=== PATIENT | female | born 1985 ===

== ENCOUNTER 2019-05-26 10:34 | Inpatient (IN) ==
[2019-05-26] MEDS ORDERED: Naloxone 0.4 MG/ML INJ IVP PRN (11:40)
[2019-05-26] MEDS ORDERED: Famotidine 20 MG/2 ML VIAL IVP PRN (11:40)
[2019-05-26] MEDS ORDERED: Ondansetron 4 MG/2 ML VIAL IVP PRN (11:40)
[2019-05-26] MEDS ORDERED: Metoclopramide 10 MG/2 ML VIAL IVP PRN (11:40)
[2019-05-26] MEDS ORDERED: *HR* Nalbuphine 10 MG/ML AMPUL IVP PRN (11:40)
[2019-05-26] MEDS ORDERED: Lidocaine 1% 20 ML MDV INFILT PRN (11:40)
[2019-05-26] MEDS ORDERED: Ringers Solution, Lactated 1,000 ML IVC SCH (11:45)
[2019-05-26 12:34] LABS: Basophils % 0.2 %; Eosinophils % 0.2 %; Hematocrit 40.8 % (35.3-44.9); Hemoglobin 13.6 g/dL (11.5-15.4); Immature Granulocytes % 0.2 % (0-4); Lymphocytes # 1.6 K/mcL (0.6-4.6); Lymphocytes % 17.9 %; Mean Corpuscular HGB Conc 33.3 g/dL (31.6-35.5); Mean Corpuscular Volume 89.9 fL (83.0-100.0); Mean Platelet Volume 11.4 fL (9.4-12.4); Monocytes # 0.5 K/mcL (0.0-1.3); Monocytes % 5.9 %; Neutrophils # 6.5 K/mcL (1.6-8.9); Platelet Count 202 K/mcL (140-400); Red Blood Count 4.54 M/mcL (3.82-4.97); Red Cell Distribution Width 12.7 % (11.5-14.5); Segmented Neutrophils % 75.6 %; White Blood Count 8.7 K/mcL (4.3-11.1)
[2019-05-26 12:44] LABS: Amphetamine Screen,Urine Negative ng/mL (Cutoff=1000); Barbiturate Screen,Urine Negative ng/mL (Cutoff=200); Benzodiazepines Screen,Urine Negative ng/mL (Cutoff=200); Cannabinoid Screen,Urine Negative ng/mL (Cutoff = 50); Cocaine Screen,Urine Negative ng/mL (Cutoff= 300); Opiate Screen,Urine Negative ng/mL (Cutoff=300); Phencyclidine Screen,Urine Negative ng/mL (Cutoff=25)
--- NOTE | 2019-05-26 12:53 | OB Labor Progress Note ---
Date of Encounter: 05/26/19 Time of Encounter: 12:50 Labor Progress Note - Subjective Subjective: The patient reports the contractions assuring to get more uncomfortable and closer together. - Vital Signs Vital Signs: Afebrile, vital signs stable - Cervix Cervix: 7/80/-1, vertex - Heart Tones Heart Tones: 120s baseline, CAT 1 - Spalding Spalding: Contractions every 2-4 minutes spontaneous - Interventions Interventions: 39 week 4 day IUP in spontaneous labor - Plan Plan: Amniotomy with small amount of clear fluid. Patient desiring epidural. Anesthesia notified.
[2019-05-26] MEDS ORDERED: *HR* FentaNYL (PF) 100 MCG/2 ML VIAL EP ONE (12:54)
[2019-05-26] MEDS ORDERED: Bupivacaine-MPF 0.25% 10 ML VIAL EP ONE (12:54)
[2019-05-26] MEDS ORDERED: EPHEDrine 50 MG/ML VIAL IVP PRN (12:54)
[2019-05-26] MEDS ORDERED: Epidural Premix (fent/bupiv) 110 ML EP SCH (13:00)
[2019-05-26] MEDS ORDERED: Epidural Premix (fent/bupiv) 110 ML EP ONE (13:01)
--- NOTE | 2019-05-26 13:37 | Anesthesia Evaluation PreOp ---
Date of Encounter: 05/26/19 Time of Encounter: 13:35 - Past History Planned Operation: FABIO Cardiac History: Denies any Significant Hx Pulmonary History: Denies Any Significant HX [employer] EM[employer]OYEE History: Denies Any Significant HX Other Medical History: Denies Any Significant HX Anesthesia History: No Prior Anesthetic Complications (never had GA; denies family h/o GA complications), Past Anesthesia (FABIO x 1--no issues) : Yes Alcohol Use: none Drug use: none Medications and Allergies Vit Calc,Iron,Folic [ Vitamins] 1 tab PO DAILY 05/03/17 [History] Allergy/AdvReac Type Severity Reaction Status Date / Time No Known Allergies Allergy Verified 05/03/17 17:30 - Meds/Allergy Pre-op Review Medications Reviewed: Yes Allergies Reviewed: Yes Beta Blockers on Current Med List: No Anesthesia Results - Labs 05/26/19 11:58 Anesthesia Exam 128/69, HR 78 O2 Sat Height 1.7 m Weight 91.2 kg NPO (# of Hours): >8hrs Pain Scale: 8 Pain Scale Used: [place] (Faces) - HEENT Pupil (Motor): Pupils equal Mallampati: II Teeth: Normal Oral Opening: Greater than 3 - [employer] EM[employer]OYEE LOC: Oriented [employer] Motor: Normal RUE, Normal LUE, Normal RLE, Normal LLE, Normal Face [employer] Sensory: Normal: RUE, LUE, RLE, LLE, Face - Cardiac Rhythm: Regular Murmur: None - Pulmonary Breath Sounds: bilateral Clear Respiratory Effort: Symmetrical Anesthesia Assess/Plan ASA Score: 2 Level of consciousness: Cooperative, Oriented, Restless Anesthetic Plan: Epidural Autologous Blood: No Monitoring Plan: Standard Monitors Recovery Plan: Other
--- NOTE | 2019-05-26 13:39 | Anesthesia Procedures ---
Date of Encounter: 05/26/19 Time of Encounter: 13:37 Procedures: Anesthesia - Epidural/Spinal Patient ID/Chart reviewed: Yes Patient examined: Yes OB Eval: Gestational age: 39 weeks 4 days OB Eval: : 2 OB Eval: Hx Para: 1 OB Eval: Contractions: Non-stressed pattern Consent Obtained: Yes Supplemental Oxygen: None/Room Air Site Prep: Aseptic Technique, Sterile prep and drape, 0.5% Chlorhexidine/Alcohol Patient position: upright Local Anesthetic: Lidocaine 1% Amount of Local Anesthetic used: 5 Touhy Needle Gauge: 18 Touhy Needle Depth (cm): 6 Catheter Depth at Skin (cm): 11 Test Dose (1.5% Lido + Epi): Volume given (mls): 5 Test Dose Result: Negative Loading Dose: 0.25% Marcaine (mls): 5 Loading Dose: Fentanyl (mcg): 100 Loading Dose Administered: Thru Catheter Infusion Med: 0.125% Bupivacaine w/ 2 mcg/ml Fentanyl Infusion Rate (mls/hr): 14 (w/ demand bolus of 5mL q30min PRN) Catheter Secured in Place: Tegaderm, Tape Interspace Used: L4-L5 Loss of Resistance (GABRIELLA): Yes Blood: No CSF: No Paresthesia: No Procedure: successful on 1st attempt; Patient tolerated procedure well; VSS Vitals + FHT's: see GAIL Contreras's electronic records for VS entry.
[2019-05-26] MEDS ORDERED: Oxytocin 20 units/ LR 1000 mL 20 UNIT/1,000 ML BAG IVC ONE ×2 (14:07→19:55)
--- NOTE | 2019-05-26 17:41 | OB/GYN Procedure Note ---
Delivery - Delivery Date: 05/26/19 Provider: Roslyn Richter Intrapartum events: none Delivery induction: none Delivery augmentation: rupture of membranes Delivery monitor: external FHT, external uterine Anesthesia: epidural Quantitated Blood Loss: 50 - Infant (s) A Delivery Date: 05/26/19 Infant Delivery Time: 16:47 Presentation: vertex Position: RICKI Route of delivery: Gender: Female Viability: Viable Pounds: 8 Ounces: 5 Weight Gram: 3.775 kg at 1 minute: 8 at 5 mins: 9 Shoulder Dystocia: not encountered Placenta: spontaneous Cord: 3 umbilical vessels - Repair Laceration Description: Perineal - 1st Degree - Complications Delivery complications: none Delivery comments: The patient was complete and pushing with epidural anesthesia with a spontaneous vaginal delivery in the RICKI position of a vigorous female weighing 8 lbs. 5 oz. with Apgars of 8 at 1 minute and 9 at 5 [address] was [address] on the maternal abdomen. The cord was clamped and cut after pulsations ceased. The placenta was delivered spontaneous and intact. There was a first-degree perineal laceration which was not hemostatic and was repaired with 3-0 monocryl in the usual fashion. Estimated blood loss 50 mL, complications none. Both mother and infant were recovering in stable condition in the LDR. - Disposition Mom disposition: stable in LDR disposition: stable in LDR
[2019-05-26] MEDS ORDERED: Benzocaine/Menthol 56 GM AEROSOL SPRAY TP PRN (20:20)
[2019-05-26] MEDS ORDERED: Acetaminophen 325 MG TABLET PO SCH (20:20)
[2019-05-26] MEDS ORDERED: Lanolin 7 G OINT...G. TP PRN (20:20)
[2019-05-26] MEDS: Ibuprofen 600 MG TABLET PO SCH (21:30)
[2019-05-27] MEDS ORDERED: Acetaminophen 325 MG TABLET PO SCH
[2019-05-27] MEDS ORDERED: Prenatal Vit/FA 1 EACH TABLET PO SCH (09:00)
[2019-05-27] MEDS: Ibuprofen 600 MG TABLET PO SCH ×2 (10:23→16:59)
--- NOTE | 2019-05-27 12:44 | Discharge Summary ---
Date of Encounter: 05/27/19 Time of Encounter: 12:42 - Discharge Diagnosis (1) Vaginal delivery Priority: Primary Status: Acute Comments: Feeling well Tolerating regular diet Pain well-controlled with by mouth pain meds Ambulating independently Voiding independently Lochia light Passing flatus, no BM yet Vital signs stable Discharge home today (2) Breast feeding status of mother Priority: Secondary Status: Acute Comments: Community resources provided - Discharge Medications Prescriptions: New Acetaminophen [Tylenol] 650 mg PO Q6H tablet Ibuprofen [Motrin] 600 mg PO Q6H #30 tablet Benzocaine/Menthol Saucier [Dermoplast Saucier] 1 appl TP QID PRN aerosol PRN Reason: See Comments Docusate [Colace] 100 mg PO BID #30 capsule Lanolin [Lansinoh] 1 appl TP TID PRN oint...g. PRN Reason: Breast Feeding Discontinued Vit Calc,Iron,Folic [ Vitamins] 1 tab PO DAILY Home Medications: Acetaminophen [Tylenol] 650 mg PO Q6H tablet 05/27/19 [Rx] Benzocaine/Menthol Saucier [Dermoplast Saucier] 1 appl TP QID PRN aerosol 05/27/19 [Rx] Docusate [Colace] 100 mg PO BID #30 capsule 05/27/19 [Rx] Ibuprofen [Motrin] 600 mg PO Q6H #30 tablet 05/27/19 [Rx] Lanolin [Lansinoh] 1 appl TP TID PRN oint...g. 05/27/19 [Rx] Allergies/Adverse Reactions: Allergy/AdvReac Type Severity Reaction Status Date / Time No Known Allergies Allergy Verified 05/03/17 17:30 Data Procedures and tests throughout hospitalization: Laboratory Tests 05/26/19 05/26/19 11:58 11:58 WBC 8.7 RBC 4.54 Hgb 13.6 Hct 40.8 MCV 89.9 MCH 30.0 MCHC 33.3 RDW 12.7 Plt Count 202 MPV 11.4 Immature Gran % 0.2 Seg Neutrophils % 75.6 Lymphocytes % 17.9 Monocytes % 5.9 Eosinophils % 0.2 Basophils % 0.2 Neutrophils # 6.5 Lymphocytes # 1.6 Monocytes # 0.5 Eosinophils # 0.0 Basophils # 0.0 Urine Opiates Screen Negative Ur Buprenorphine Scrn Negative Ur Barbiturates Screen Negative Ur Phencyclidine Scrn Negative Ur Amphetamines Screen Negative U Benzodiazepines Scrn Negative Urine Cocaine Screen Negative U Marijuana (THC) Screen Negative Ur Drug Screen Interp See Below Labs on day of discharge: Labs from last 24 hours 05/26/19 11:58 Urine Opiates Screen Negative Ur Buprenorphine Scrn Negative Ur Barbiturates Screen Negative Ur Phencyclidine Scrn Negative Ur Amphetamines Screen Negative U Benzodiazepines Scrn Negative Urine Cocaine Screen Negative U Marijuana (THC) Screen Negative Date of admission: 05/26/19 10:34 Primary care physician: PCP NONE Consults: 05/26/19 20:20 Consult to Ceramic Artist [CONS] Routine Comment: Vaginal delivery, consult needed Discharging clinician: Brittni Rock Anticipated date of discharge: 05/27/19 - Patient Status Disposition: Home, Self-Care Condition: Good Functional capacity at discharge: independent ambulation Overall status at discharge: patient is progressing back to baseline - Discharge Instructions Follow Up With: NONE,PCP [Primary Care Provider] - Roslyn Richter MD [Partnered Physician] - - Diet and Activity Activity: increase activity as tolerated Diet: regular diet Hospital Course Reason for admission: IUP at term Delivery: Episiotomy: none Laceration: 1st degree Other procedures: none complications: none Discharge diagnosis: IUP at term delivered baby: female Time spent discussing smoking cessation with patient: 3 to 10 minutes Time Attestation: Total time spent providing and/or coordinating discharge services: Time Spent: Less than 30 minutes Exam - Constitutional Vitals: Temp Pulse Resp BP Pulse Ox 98.0 F 90 16 105/67 97 05/27/19 08:00 05/27/19 08:00 05/27/19 08:00 05/27/19 08:00 05/27/19 04:30 General appearance IM: A&O X 3, morbidly obese - Respiratory Respiratory exam: Present: CTAB - Cardiovascular Cardiovascular exam IM: Present: RRR, +S1, +S2 - GI/Abdominal GI/Abdominal exam IM: normal bowel sounds, no peritoneal signs - Rectal Rectal exam: deferred - Uterine Tone: Firm Uterus Position: 2 Fingers Below Umbilicus, Midline - Extremities Exam Extremities exam IM: Present: normal capillary refill - Neurological Exam Neurological exam: alert, CN II-XII intact, normal gait, oriented X3, reflexes normal, no focal deficits, strengths equal and symetr throughout - Psychiatric Additional comments: Patient denies history of anxiety and depression. Signs and symptoms of depression discussed with patient and partner and they both verbalized understanding of when to seek help.
[2019-05-27 15:51] VITALS: BP 108/64
[2019-05-27] MEDS: Oxytocin 20 units/ LR 1000 mL 20 UNIT/1,000 ML BAG IVC SCH ×2 (17:04→17:05)
== END 2019-05-27 20:30 | disposition home or self-care (01) | DRG 807 ==
LOC: 1NENULAB → OBSVTOIN 10:34 → 1NENUOBS 20:20
PROVIDERS: ADMIT Obstetrics & Gynecology; ATTEND Obstetrics & Gynecology